=== PATIENT | female | born 2000 | race Two or more races ===

== ENCOUNTER 2025-06-16 16:54 | Emergency (ER) | payer OTHER ==
[~2025-06-16] VITALS: Ht 160 cm; Wt 59.0 kg
[2025-06-16] MEDS ORDERED: LEXAPRO5 MG PO (17:24)
[2025-06-16] MEDS ORDERED: DEXAMETHASONE SODIUM PHOSPHATE 4 MG/ML VIAL IM ONE (18:15)
[2025-06-16] MEDS ORDERED: DIPHENHYDRAMINE HCL 50 MG/ML VIAL 1ML IM ONE (18:15)
== END 2025-06-16 18:30 | disposition home or self-care (01) ==
LOC: ER 16:54
DX: L55.0 Sunburn of first degree (principal); L55.9 Sunburn, unspecified; Z88.0 Allergy status to penicillin; Z88.2 Allergy status to sulfonamides
CPT/HCPCS: 96372; 99282; J1100; J1200